=== PATIENT | male | born 1985 | race Caucasian/White ===

== ENCOUNTER 2018-03-15 10:26 | Inpatient (IN) | payer OTHER, MEDICAID, SELFPAY ==
[2018-03-15] VITALS (10 sets, daily range): BP systolic 120–150; BP diastolic 68–99; PULSE 98–124; RESP 14–24; TEMP 36–37.6; O2SAT 96–100; BMI 21.2
--- NOTE | 2018-03-15 10:31 | DI.RAD.S_ITS ---
PROCEDURE: XR CHEST 1V INDICATIONS: chest pain TECHNIQUE: One view of the chest was acquired. COMPARISON: None. FINDINGS: Surgical changes and devices: None. Lungs and pleura: No pleural effusions or pneumothorax. Lungs are clear. Mediastinum: Mediastinal contours appear normal. Heart size is normal. Bones and chest wall: No suspicious bony lesions. Overlying soft tissues appear unremarkable. IMPRESSION: No acute pulmonary process. Dictated by: Angelita Rodríguez M.D. on 03/15/2018 at 10:06 Approved by: Angelita Rodríguez M.D. on 03/15/2018 at 10:07
[2018-03-15 10:51] LABS: Add Manual Diff / Slide Review NO; Basophils Percent Auto 0.2 % (0-2); Eosinophils Percent Auto 0.1 % (2-4); Hematocrit 45.1 % (41-53); Hemoglobin 15.4 g/dL (13.5-17.5); Lymphocytes Percent Auto 13.8 % (25-40); Mean Corpuscular HGB Conc 34.2 % (30-36); Mean Corpuscular Volume 87.7 fL (80-100); Monocytes Percent Auto 2.5 % (3-14); Neutrophils Absolute Auto 10700 /uL (3000-5900); Neutrophils Percent Auto 83.4 % (50-75); Platelet Count 318 X10^3/uL (150-400); Red Blood Cell Count 5.14 X10^6/uL (4.5-5.9); Red Cell Distribution Width 13.4 % (11.6-14.8); White Blood Cell Count 12.8 X10^3/uL (4.5-11.0)
[2018-03-15 10:56] LABS: pH VBG 7.16 (7.31-7.41)
[2018-03-15 10:56] LABS: HEMOLYSIS 120 (0-50)
--- NOTE | 2018-03-15 10:56 | PC.NURSE ---
pt arrived via airlift due to hyperglycemia. pt awake, somulant at times does answer questions. emesis/ dark red iv x l ac by medic/ another iv placed when here. 1000cc ns infused, 2nd line up md at bedside/ rx given.
[2018-03-15 11:00] LABS: Lactate (Lactic Acid) 1.4 mmol/L (0.7-2.1)
[2018-03-15 11:02] LABS: Alanine Aminotransferase 41 IU/L (21-72); Albumin 4.8 g/dL (3.5-5.0); Albumin Globulin Ratio 1.6 (1.0-2.8); Alkaline Phosphatase 87 U/L (38-126); Aspartate Aminotransferase 40 IU/L (17-59); BUN Creatinine Ratio 22.9 (6-22); Bilirubin Total 0.9 mg/dL (0.2-1.3); Blood Urea Nitrogen 16 mg/dL (9-20); Calcium 9.2 mg/dL (8.4-10.2); Chloride 100 mmol/L (98-107); Creatine Kinase 92 U/L (55-170); Estimated Glomerular Filt Rate > 60.0 mL/min (>60); Glucose 482 mg/dL (70-100); Potassium 5.5 mmol/L (3.4-5.1); Sodium 135 mmol/L (137-145); Total Protein 7.8 g/dL (6.3-8.2)
[2018-03-15] MEDS: PANTOPRAZOLE 40 MG VIAL IV (11:06)
[2018-03-15] MEDS: ONDANSETRON 4 MG/2 ML INJ IV ×2 (11:06→19:41)
[2018-03-15] MEDS: SODIUM CHLORIDE 0.9% 1,000 ML 1000 ML IV (11:06)
[2018-03-15] MEDS: INSULIN REGULAR, HUMAN 100 UNIT in SODIUM CHLORIDE 0.9% 100 ML 6 ML IV (11:09)
--- NOTE | 2018-03-15 11:11 | ED.GENADULT ---
HPI - General Adult General Chief complaint: Diabetic Problem Stated complaint: DKA, GI Bleed Time Seen by Provider: 03/15/18 10:31 Source: patient and EMS Mode of arrival: other (airlift) History of Present Illness HPI narrative: Patient is a 32-year-old male who presents with of vomiting and elevated glucose. He is a type 1 diabetic. Visiting from [place]. He has vomited coffee-ground like substance he has a bag full of it. He often has gastritis and upper GI bleeding with his DKA. He he has been taking his insulin except he has not been taking it for the last 2-3 days. No fever or chills. He is having abdominal discomfort. He has progressively gotten worse on this morning he was Related Data Home Medications Medication Instructions Recorded Confirmed Lantus U-100 Insulin 10 units SUB-Q BEDTIME 03/15/18 03/15/18 insulin glargine [Lantus U-100 20 unit SUB-Q DAILY 03/15/18 03/15/18 Insulin] insulin lispro [Humalog U-100 0 units SUB-Q ACHS 03/15/18 03/15/18 Insulin] Allergies Allergy/AdvReac Type Severity Reaction Status Date / Time azithromycin Allergy Intermediate Verified 03/15/18 11:06 codeine Allergy Intermediate Verified 03/15/18 11:06 Review of Systems Review of Systems All systems reviewed & are unremarkable except as noted in HPI and below Constitutional Denies chills, Denies fever(s), Denies lethargy and Denies weakness ENT Ears, Nose, Mouth, and Throat: Denies dizziness Cardiovascular Denies chest pain, Denies syncope, Denies irregular heart rhythm, Denies lightheadedness, Denies palpitations, Denies dyspnea, Denies dyspnea on exertion and Denies orthopnea Respiratory Denies cough, Denies dyspnea, Denies dyspnea on exertion and Denies wheezing Gastrointestinal Gastrointestinal: Reports as per HPI, Denies diarrhea, Reports nausea and Reports vomiting Neurologic Denies dizziness, Denies syncope and Denies weakness Endocrine Reports system reviewed and no additional complaints, except as docu and Denies palpitations Allergic/Immunologic Denies wheezing PFSH Medical History Diabetes mellitus (Acute) GI bleed (Acute) Myocardial infarct (Acute) Family History: Reviewed 03/15/18 by Chaparro Waite MD Social History household members: none Smoking Status: Current every day smoker alcohol intake: current Exam Initial Vital Signs Initial Vital Signs: Vital Signs Temperature 97.2 F L 03/15/18 10:48 Pulse Rate 120 H 03/15/18 10:48 Respiratory Rate 21 03/15/18 10:48 Blood Pressure 150/99 H 03/15/18 10:48 Pulse Oximetry 98 03/15/18 10:48 Const General: acute distress (Actively vomiting), diaphoretic, ill appearing and lethargic HENMO Head: normal to inspection Mouth: No moist mucous membranes and mucous membranes abnormal (Dry) Resp Effort & Inspection: normal respiratory effort and able to speak in complete sentences Auscultation: clear to auscultation bilaterally Cardio Rate: tachycardic Rhythm: regular rhythm GI Inspection: non-distended Palpation: soft, no hepatosplenomegaly, No guarding, No pulsatile mass and No tender Auscultation: normal bowel sounds Skin General: no rashes or lesions noted, No jaundice and No petechiae Neuro General: alert and awake Cranial Nerves: CN's II-XI intact bilaterally Course Orders Ordered: ED Orders 03/15/18 10:30 Complete Blood Count AUTO DIFF Stat Comprehensive Metabolic Panel Stat Ketones (Beta-Hydroxybutyrate) Stat Lactate (Lactic Acid) Stat Troponin with CK Cardiac Panel Stat Type and Screen Stat 03/15/18 10:31 XR chest 1V Stat 03/15/18 10:32 pH VBG Stat 03/15/18 10:33 EKG-12 Lead Stat 03/15/18 13:28 Consult to Dietitian, Adult Routine Consult to Respiratory Therapy Evaluate & Treat 03/15/18 13:34 Basic Metabolic Panel Q4H 03/15/18 14:45 MRSA PCR Stat Rapid Drug Screen, Urine Stat Urinalysis Sreen (Dip Only) Stat Urine Culture Stat 03/15/18 16:45 Basic Metabolic Panel Q4H 03/15/18 20:45 Basic Metabolic Panel Q4H 03/16/18 01:00 BMP [Basic Metabolic Panel] Q4H 03/16/18 05:00 BMP [Basic Metabolic Panel] Q4H Complete Blood Count AUTO DIFF Routine 03/16/18 08:00 Ketones (Beta-Hydroxybutyrate) Routine 03/16/18 09:00 BMP [Basic Metabolic Panel] Q4H Dextrose (D50w) 25 gm IV PRN PRN PRN Reason: Hypoglycemia Enoxaparin Sodium (Lovenox) 40 mg SUBCUT DAILY DAPHNIE Insulin Human Regular 100 unit (/ Sodium Chloride) 100 mls @ 6 mls/hr IV TITRATE DAPHNIE; Protocol Dextrose/Sodium Chloride (Dextrose 5%-0.45% Ns) 1,000 mls @ 200 mls/hr IV CONT DAPHNIE Last Admin: 03/15/18 13:30 Dose: 200 mls/hr Sodium Chloride (Normal Saline 0.9%) 250 mls @ 21 mls/hr IV Q24H PRN PRN Reason: Flush Lorazepam (Ativan) 1 mg IV Q4HR PRN PRN Reason: nausea/vomiting Last Admin: 03/15/18 14:55 Dose: 1 mg Metoclopramide HCl (Reglan) 10 mg IV Q6HR PRN PRN Reason: Nausea And Vomiting Ondansetron HCl (Zofran) 4 mg IV Q4HR PRN PRN Reason: Nausea And Vomiting Pantoprazole Sodium (Protonix) 40 mg IV DAILY DAPHNIE Discontinued Medications Sodium Chloride (Normal Saline 0.9%) 1,000 mls @ 1,000 mls/hr IV BOLUS ONE Stop: 03/15/18 11:30 Last Infusion: 03/15/18 11:59 Dose: 999 mls/hr Admin: 03/15/18 11:06 Dose: 1,000 mls/hr Insulin Human Regular 100 unit (/ Sodium Chloride) 100 mls @ 6 mls/hr IV TITRATE DAPHNIE; Protocol Last Titration: 03/15/18 14:12 Dose: 7 unit/hr, 7 mls/hr Titration: 03/15/18 13:57 Dose: 11 unit/hr, 11 mls/hr Titration: 03/15/18 13:21 Dose: 4 unit/hr, 4 mls/hr Titration: 03/15/18 11:36 Dose: 4 unit/hr, 4 mls/hr Admin: 03/15/18 11:09 Dose: 6 unit/hr, 6 mls/hr Sodium Chloride (Normal Saline 0.9%) 1,000 mls @ 1,000 mls/hr IV BOLUS ONE Stop: 03/15/18 12:22 Last Admin: 03/15/18 11:47 Dose: Dextrose (Dextrose 5% Water) 1,000 mls @ 200 mls/hr IV CONT DAPHNIE Last Infusion: 03/15/18 13:25 Dose: 0 mls/hr Infusion: 03/15/18 13:23 Dose: 200 mls/hr Admin: 03/15/18 11:45 Dose: 200 mls/hr Potassium Chloride 20 meq/ (Sodium Chloride) 500 mls @ 250 mls/hr IV NOW ONE Stop: 03/15/18 14:18 Last Admin: 03/15/18 14:56 Dose: Potassium Chloride 20 meq/ (Sodium Chloride) 500 mls @ 250 mls/hr IV NOW ONE Stop: 03/15/18 16:29 Last Admin: 03/15/18 14:55 Dose: 250 mls/hr Metoclopramide HCl (Reglan) 10 mg IV NOW ONE Stop: 03/15/18 11:24 Last Admin: 03/15/18 11:24 Dose: 10 mg Ondansetron HCl (Zofran) 4 mg IV NOW ONE Stop: 03/15/18 10:35 Last Admin: 03/15/18 11:06 Dose: 4 mg Pantoprazole Sodium (Protonix) 40 mg IV NOW ONE Stop: 03/15/18 10:32 Last Admin: 03/15/18 11:06 Dose: 40 mg Vital Signs - 8 hr 03/15/18 10:48 03/15/18 10:55 03/15/18 11:09 Temperature 97.2 F L 97.2 F L 97.2 F L Pulse Rate 120 H 120 H 120 H Respiratory Rate 21 21 21 Blood Pressure 150/99 H 150/99 H 150/99 H Blood Pressure [Left Arm] Pulse Oximetry 98 98 98 03/15/18 11:32 03/15/18 12:55 03/15/18 13:03 Temperature 97.8 F Pulse Rate 124 H 122 H 121 H Respiratory Rate 14 24 24 Blood Pressure 148/86 H Blood Pressure [Left Arm] 139/81 H 146/84 H Pulse Oximetry 100 100 96 03/15/18 15:00 Temperature 96.8 F L Pulse Rate 121 H Respiratory Rate 16 Blood Pressure 133/86 H Blood Pressure [Left Arm] Pulse Oximetry Medical Decision Making MDM Narrative Medical decision making narrative: Patient is in DKA. Glucose is dropping rather quickly with just IV fluids. Insulin drip was started fairly quickly as well. Decreasing insulin drip switching over to D5. Dr. Waite in the ED happily accepts patient patient will be going to the ICU. Lab Data Lab results narrative: Anion gap 28 Result diagrams: 03/15/18 10:30 03/15/18 13:34 Lab Results 03/15/18 03/15/18 03/15/18 Range/Units 10:30 10:30 10:30 WBC 12.8 H (4.5-11.0) X10^3/uL RBC 5.14 (4.5-5.9) X10^6/uL Hgb 15.4 (13.5-17.5) g/dL Hct 45.1 (41-53) % MCV 87.7 (80-100) fL MCH 30.0 (26-34) PG MCHC 34.2 (30-36) % RDW 13.4 (11.6-14.8) % Plt Count 318 (150-400) X10^3/uL Neut % (Auto) 83.4 H (50-75) % Lymph % (Auto) 13.8 L (25-40) % [place] % (Auto) 2.5 L (3-14) % Eos % (Auto) 0.1 L (2-4) % Baso % (Auto) 0.2 (0-2) % Neut # (Auto) 64970 H (7288-8012) /uL VBG pH (7.31-7.41) Sodium 135 L (137-145) mmol/L Potassium 5.5 H (3.4-5.1) mmol/L Chloride 100 (98-107) mmol/L Carbon Dioxide 7 L* (22-32) mmol/L BUN 16 (9-20) mg/dL Creatinine 0.70 (0.66-1.25) mg/dL Estimated GFR > 60.0 (>60) mL/min BUN/Creatinine Ratio 22.9 H (6-22) Glucose 482 H (70-100) mg/dL Lactate 1.4 (0.7-2.1) mmol/L Calcium 9.2 (8.4-10.2) mg/dL Total Bilirubin 0.9 (0.2-1.3) mg/dL AST 40 (17-59) IU/L ALT 41 (21-72) IU/L Alkaline Phosphatase 87 (38-126) U/L Total Creatine Kinase 92 (55-170) U/L Troponin I < 0.012 (0.01-0.034) ng/mL Total Protein 7.8 (6.3-8.2) g/dL Albumin 4.8 (3.5-5.0) g/dL Globulin 3.0 (1.7-4.1) g/dL Albumin/Globulin Ratio 1.6 (1.0-2.8) Urine Color Urine Appearance Urine pH (4.5-8.0) Ur Specific [place] (1.000-1.035) Urine Protein (Negative) Urine Glucose (UA) (Negative) g/dL Urine Ketones (NEGATIVE) Urine Occult Blood (Negative) Urine Nitrate (Negative) Urine Bilirubin (NEGATIVE) Urine Urobilinogen (0.2) E.U./dL Ur Leukocyte Esterase (NEGATIVE) Nasal Screen MRSA (PCR) (Negative) Urine Opiates Screen (Negative) Ur Oxycodone Screen (Negative) Urine Methadone Screen (Negative) Ur Barbiturates Screen (Negative) U Tricyclic Antidepress (Negative) Ur Phencyclidine Scrn (Negative) Ur Amphetamines Screen (Negative) U Methamphetamines Scrn (Negative) Ur MDMA Scrn (Ecstasy) (Negative) U Benzodiazepines Scrn (Negative) Urine Cocaine Screen (Negative) U Marijuana (THC) Screen (Negative) Ketones 9.94 H (<0.27) mmol/L Blood Type Antibody Screen 03/15/18 03/15/18 03/15/18 Range/Units 10:30 10:32 13:34 WBC (4.5-11.0) X10^3/uL RBC (4.5-5.9) X10^6/uL Hgb (13.5-17.5) g/dL Hct (41-53) % MCV (80-100) fL MCH (26-34) PG MCHC (30-36) % RDW (11.6-14.8) % Plt Count (150-400) X10^3/uL Neut % (Auto) (50-75) % Lymph % (Auto) (25-40) % [place] % (Auto) (3-14) % Eos % (Auto) (2-4) % Baso % (Auto) (0-2) % Neut # (Auto) (5881-5653) /uL VBG pH 7.16 L* (7.31-7.41) Sodium 141 (137-145) mmol/L Potassium 4.4 (3.4-5.1) mmol/L Chloride 108 H (98-107) mmol/L Carbon Dioxide 8 L* (22-32) mmol/L BUN 15 (9-20) mg/dL Creatinine 0.60 L (0.66-1.25) mg/dL Estimated GFR > 60.0 (>60) mL/min BUN/Creatinine Ratio 25.0 H (6-22) Glucose 323 H D (70-100) mg/dL Lactate (0.7-2.1) mmol/L Calcium 8.7 (8.4-10.2) mg/dL Total Bilirubin (0.2-1.3) mg/dL AST (17-59) IU/L ALT (21-72) IU/L Alkaline Phosphatase (38-126) U/L Total Creatine Kinase (55-170) U/L Troponin I (0.01-0.034) ng/mL Total Protein (6.3-8.2) g/dL Albumin (3.5-5.0) g/dL Globulin (1.7-4.1) g/dL Albumin/Globulin Ratio (1.0-2.8) Urine Color Urine Appearance Urine pH (4.5-8.0) Ur Specific [place] (1.000-1.035) Urine Protein (Negative) Urine Glucose (UA) (Negative) g/dL Urine Ketones (NEGATIVE) Urine Occult Blood (Negative) Urine Nitrate (Negative) Urine Bilirubin (NEGATIVE) Urine Urobilinogen (0.2) E.U./dL Ur Leukocyte Esterase (NEGATIVE) Nasal Screen MRSA (PCR) (Negative) Urine Opiates Screen (Negative) Ur Oxycodone Screen (Negative) Urine Methadone Screen (Negative) Ur Barbiturates Screen (Negative) U Tricyclic Antidepress (Negative) Ur Phencyclidine Scrn (Negative) Ur Amphetamines Screen (Negative) U Methamphetamines Scrn (Negative) Ur MDMA Scrn (Ecstasy) (Negative) U Benzodiazepines Scrn (Negative) Urine Cocaine Screen (Negative) U Marijuana (THC) Screen (Negative) Ketones (<0.27) mmol/L Blood Type O Positive Antibody Screen Negative 03/15/18 03/15/18 03/15/18 Range/Units 14:45 14:45 14:45 WBC (4.5-11.0) X10^3/uL RBC (4.5-5.9) X10^6/uL Hgb (13.5-17.5) g/dL Hct (41-53) % MCV (80-100) fL MCH (26-34) PG MCHC (30-36) % RDW (11.6-14.8) % Plt Count (150-400) X10^3/uL Neut % (Auto) (50-75) % Lymph % (Auto) (25-40) % [place] % (Auto) (3-14) % Eos % (Auto) (2-4) % Baso % (Auto) (0-2) % Neut # (Auto) (8767-2460) /uL VBG pH (7.31-7.41) Sodium (137-145) mmol/L Potassium (3.4-5.1) mmol/L Chloride (98-107) mmol/L Carbon Dioxide (22-32) mmol/L BUN (9-20) mg/dL Creatinine (0.66-1.25) mg/dL Estimated GFR (>60) mL/min BUN/Creatinine Ratio (6-22) Glucose (70-100) mg/dL Lactate (0.7-2.1) mmol/L Calcium (8.4-10.2) mg/dL Total Bilirubin (0.2-1.3) mg/dL AST (17-59) IU/L ALT (21-72) IU/L Alkaline Phosphatase (38-126) U/L Total Creatine Kinase (55-170) U/L Troponin I (0.01-0.034) ng/mL Total Protein (6.3-8.2) g/dL Albumin (3.5-5.0) g/dL Globulin (1.7-4.1) g/dL Albumin/Globulin Ratio (1.0-2.8) Urine Color Yellow Urine Appearance Clear Urine pH 5.0 (4.5-8.0) Ur Specific [place] 1.025 (1.000-1.035) Urine Protein Trace H (Negative) Urine Glucose (UA) 1+ H (Negative) g/dL Urine Ketones 3+ H (NEGATIVE) Urine Occult Blood Trace-lysed (Negative) Urine Nitrate Negative (Negative) Urine Bilirubin Negative (NEGATIVE) Urine Urobilinogen 0.2 (0.2) E.U./dL Ur Leukocyte Esterase Negative (NEGATIVE) Nasal Screen MRSA (PCR) Positive for mrsa (Negative) Urine Opiates Screen Negative (Negative) Ur Oxycodone Screen Negative (Negative) Urine Methadone Screen Negative (Negative) Ur Barbiturates Screen Negative (Negative) U Tricyclic Antidepress Negative (Negative) Ur Phencyclidine Scrn Negative (Negative) Ur Amphetamines Screen Negative (Negative) U Methamphetamines Scrn Negative (Negative) Ur MDMA Scrn (Ecstasy) Negative (Negative) U Benzodiazepines Scrn Negative (Negative) Urine Cocaine Screen Negative (Negative) U Marijuana (THC) Screen Negative (Negative) Ketones (<0.27) mmol/L Blood Type Antibody Screen Imaging Data Chest x-ray: Attestation: I personally reviewed and interpreted this imaging study as follows: Radiologist's impression: PROCEDURE: XR CHEST 1V INDICATIONS: chest pain TECHNIQUE: One view of the chest was acquired. COMPARISON: None. FINDINGS: Surgical changes and devices: None. Lungs and pleura: No pleural effusions or pneumothorax. Lungs are clear. Mediastinum: Mediastinal contours appear normal. Heart size is normal. Bones and chest wall: No suspicious bony lesions. Overlying soft tissues appear unremarkable. IMPRESSION: No acute pulmonary process. Dictated by: Angelita Rodríguez M.D. on 03/15/2018 at 10:06 ECG Data Attestation: I personally reviewed and interpreted this ECG as follows: Prior ECG tracings: not available for review Interpretation: Sinus tachycardia rate 122 no acute ischemia no ST changes no prior to compare Discharge Plan Departure Clinical Impression: Diabetes mellitus with ketoacidosis Interventions: ED Discharge Assessment Last Done: 03/15/18 13:19 Admit Date/Time: 03/15/18 12:28 Admit Provider: Chaparro Waite
[2018-03-15 11:12] LABS: Carbon Dioxide 7 mmol/L (22-32)
[2018-03-15 11:14] LABS: Ketones (Beta-Hydroxybutyrate) 9.94 mmol/L (<0.27); Troponin I < 0.012 ng/mL (0.01-0.034)
[2018-03-15] MEDS: METOCLOPRAMIDE 10 MG/2 ML INJ IV (11:24)
[2018-03-15] MEDS: DEXTROSE 5% WATER 1,000 ML 200 ML IV (11:45)
--- NOTE | 2018-03-15 11:46 | PC.NURSE ---
PER DR. RENDON VERBAL ORDERS TO HANG 0.45 NS WITH 5% DEXTROSE 1000ML AT 200ML/HR. MEDICATION WOULD NOT SCAN. MANUALLY DOCUMENTED SENIOR APPLICATIONS ENGINEER AWARE.
[2018-03-15] MEDS: DEXTROSE 5%-0.45% NS 1,000 ML 200 ML IV ×3 (13:30→22:33)
[2018-03-15 14:05] LABS: Blood Urea Nitrogen 15 mg/dL (9-20); Calcium 8.7 mg/dL (8.4-10.2); Chloride 108 mmol/L (98-107); Estimated Glomerular Filt Rate > 60.0 mL/min (>60); Glucose 323 mg/dL (70-100); HEMOLYSIS 23 (0-50); Potassium 4.4 mmol/L (3.4-5.1); Sodium 141 mmol/L (137-145)
[2018-03-15 14:08] LABS: Carbon Dioxide 8 mmol/L (22-32)
[2018-03-15] MEDS: LORazepam 2 MG/ML SYRINGE 1 MG IV (14:55)
[2018-03-15] MEDS: POTASSIUM CHLORIDE 20 MEQ in SODIUM CHLORIDE 0.9% 500 ML 250 ML IV ×2 (14:55→19:05)
--- NOTE | 2018-03-15 15:07 | PC.ADMIT ---
Admission Note: Patient to rm 102 from ER at about 1300. Pt vomiting bloody emesis, [address] up to the 140s, currently 110s to 120s. Denies pain. Insulin gtt titrated per DKA protocol. Declines to have valuables locked in safe - wallet and clothing at bedside. Call light within reach. The patient,Jose Pantoja,32 y/o, was given written information regarding hospital policies, unit procedures and contact persons. Patient's smoking status: Current every day smoker. Vital Signs - 8 hr 03/15/18 10:48 03/15/18 10:55 03/15/18 11:09 Temperature 97.2 F L 97.2 F L 97.2 F L Pulse Rate 120 H 120 H 120 H Respiratory Rate 21 21 21 Blood Pressure 150/99 H 150/99 H 150/99 H Blood Pressure [Left Arm] Pulse Oximetry 98 98 98 03/15/18 11:32 03/15/18 12:55 03/15/18 13:03 Temperature 97.8 F Pulse Rate 124 H 122 H 121 H Respiratory Rate 14 24 24 Blood Pressure 148/86 H Blood Pressure [Left Arm] 139/81 H 146/84 H Pulse Oximetry 100 100 96
[2018-03-15 15:21] LABS: Appearance Urine UA CLEAR; Bilirubin Urine UA NEGATIVE (NEGATIVE); Color Urine UA YELLOW; Glucose Urine UA 1+ g/dL (Negative); Ketones Urine UA 3+ (NEGATIVE); Leukocyte Esterase Urine UA NEGATIVE (NEGATIVE); Nitrite Urine UA Negative (Negative); Occult Blood Urine UA TRACE-LYSED (Negative); Protein Urine UA TRACE (Negative); Specific Gravity Urine UA 1.025 (1.000-1.035); Urobilinogen Urine UA 0.2 E.U./dL (0.2)
[2018-03-15 15:23] LABS: Urine Amphetamines Negative (Negative); Urine Barbiturates Negative (Negative); Urine Benzodiazepines Negative (Negative); Urine Cocaine Negative (Negative); Urine MDMA Negative (Negative); Urine Methadone Negative (Negative); Urine Methamphetamines Negative (Negative); Urine Morphine/Opi cutoff 2000 Negative (Negative); Urine Oxycodone Negative (Negative); Urine Phencyclidine Negative (Negative); Urine Tetrahydrocannabinol Negative (Negative); Urine Tricyclic Antidepressant Negative (Negative)
--- NOTE | 2018-03-15 15:44 | PM.HP.1 ---
History of Present Illness Chief complaint: Diabetes mellitus with ketoacidosis Narrative: Jose Pantoja is a 32 year old male without a local PCP who has history of type 1 diabetes, prior DKA, coronary disease who presented to emergency department with nausea, vomiting and weakness since this morning. He has been getting his medical care in [place] but was visiting friends on [place] where he used to reside. He states he has not used his insulin for the past 2 days for unclear reasons. He has had DKA admission to outside hospital in the past year. He denies recent illness such is symptoms of fever, cough or any chest pain. He did have some hematemesis with his vomiting. ER evaluation indicated venous pH 7.1, anion gap acidosis, glucose over 500 on fingerstick, elevated serum ketones consistent with DKA. In regards to history of coronary artery disease, he had 2 stents placed in LAD back in 2010. At this time he is not taking any anti-platelet agent, cholesterol-lowering drug or other cardiac medications. Patient History Medical History Diabetes mellitus (Acute) GI bleed (Acute) Myocardial infarct (Acute) Family & Social History Family History: Reviewed 03/15/18 by Chaparro Waite MD Social History: household members none Prior Living Arrangements House Safety & Behavioral: Feels Safe in Current Yes Environment Been Physically Hurt or No Threatened By a Person Suicidal Ideation Description None Suicide Plan Description No Plan Tobacco & Substance use: Tobacco type cigarettes Smoking Status Current every day smoker alcohol intake current alcohol intake frequency a few times a week Substance Use Type marijuana Meds Home Medications Medication Instructions Recorded Confirmed Type Lantus U-100 Insulin 10 units SUB-Q BEDTIME 03/15/18 03/15/18 History insulin glargine [Lantus U-100 30 unit SUB-Q DAILY 03/15/18 03/15/18 History Insulin] insulin lispro [Humalog U-100 0 units SUB-Q ACHS 03/15/18 03/15/18 History Insulin] Allergies Allergy/AdvReac Type Severity Reaction Status Date / Time azithromycin Allergy Intermediate Verified 03/15/18 11:06 codeine Allergy Intermediate Verified 03/15/18 11:06 Review of Systems Review of Systems All systems reviewed & are unremarkable except as noted in HPI and below Exam Vital Signs (past 8 hours): Vital Signs - 8 hr 03/15/18 10:48 03/15/18 10:55 03/15/18 11:09 Temperature 97.2 F L 97.2 F L 97.2 F L Pulse Rate 120 H 120 H 120 H Respiratory Rate 21 21 21 Blood Pressure 150/99 H 150/99 H 150/99 H Blood Pressure [Left Arm] Pulse Oximetry 98 98 98 03/15/18 11:32 03/15/18 12:55 03/15/18 13:03 Temperature 97.8 F Pulse Rate 124 H 122 H 121 H Respiratory Rate 14 24 24 Blood Pressure 148/86 H Blood Pressure [Left Arm] 139/81 H 146/84 H Pulse Oximetry 100 100 96 03/15/18 15:00 Temperature 96.8 F L Pulse Rate 121 H Respiratory Rate 16 Blood Pressure 133/86 H Blood Pressure [Left Arm] Pulse Oximetry Pulse Oximetry 96 Oxygen Delivery Method Room Air Oxygen Flow Rate 0 Narrative Exam Narrative: GENERAL: This is an ill appearing lethargic male HEAD: Atraumatic. Normocephalic. EYES: Pupils equal, round and reactive, extraocular muscles intact Mouth: Dry mucosa NECK: Trachea midline. No JVD or lymphadenopathy. CARDIOVASCULAR: Tachycardic with regular rhythm RESPIRATORY: Clear to auscultation bilaterally. GASTROINTESTINAL: Abdomen nondistended, soft, non-tender. No hepato-splenomegaly, or palpable masses. EXTREMITIES: No edema. NEUROLOGICAL: Lethargic, nonfocal SKIN: warm, dry, no rash Objective Labs Result Diagrams: 03/15/18 10:30 03/15/18 13:34 Labs: Laboratory Results - last 24 hr 03/15/18 03/15/18 03/15/18 10:30 10:30 10:30 WBC 12.8 H RBC 5.14 Hgb 15.4 Hct 45.1 MCV 87.7 MCH 30.0 MCHC 34.2 RDW 13.4 Plt Count 318 Neut % (Auto) 83.4 H Lymph % (Auto) 13.8 L [place] % (Auto) 2.5 L Eos % (Auto) 0.1 L Baso % (Auto) 0.2 Neut # (Auto) 05390 H VBG pH Sodium 135 L Potassium 5.5 H Chloride 100 Carbon Dioxide 7 L* BUN 16 Creatinine 0.70 Estimated GFR > 60.0 BUN/Creatinine Ratio 22.9 H Glucose 482 H Lactate 1.4 Calcium 9.2 Total Bilirubin 0.9 AST 40 ALT 41 Alkaline Phosphatase 87 Total Creatine Kinase 92 Troponin I < 0.012 Total Protein 7.8 Albumin 4.8 Globulin 3.0 Albumin/Globulin Ratio 1.6 Urine Color Urine Appearance Urine pH Ur Specific [place] Urine Protein Urine Glucose (UA) Urine Ketones Urine Occult Blood Urine Nitrate Urine Bilirubin Urine Urobilinogen Ur Leukocyte Esterase Urine Opiates Screen Ur Oxycodone Screen Urine Methadone Screen Ur Barbiturates Screen U Tricyclic Antidepress Ur Phencyclidine Scrn Ur Amphetamines Screen U Methamphetamines Scrn Ur MDMA Scrn (Ecstasy) U Benzodiazepines Scrn Urine Cocaine Screen U Marijuana (THC) Screen Ketones 9.94 H Blood Type Antibody Screen 03/15/18 03/15/18 03/15/18 10:30 10:32 13:34 WBC RBC Hgb Hct MCV MCH MCHC RDW Plt Count Neut % (Auto) Lymph % (Auto) [place] % (Auto) Eos % (Auto) Baso % (Auto) Neut # (Auto) VBG pH 7.16 L* Sodium 141 Potassium 4.4 Chloride 108 H Carbon Dioxide 8 L* BUN 15 Creatinine 0.60 L Estimated GFR > 60.0 BUN/Creatinine Ratio 25.0 H Glucose 323 H D Lactate Calcium 8.7 Total Bilirubin AST ALT Alkaline Phosphatase Total Creatine Kinase Troponin I Total Protein Albumin Globulin Albumin/Globulin Ratio Urine Color Urine Appearance Urine pH Ur Specific [place] Urine Protein Urine Glucose (UA) Urine Ketones Urine Occult Blood Urine Nitrate Urine Bilirubin Urine Urobilinogen Ur Leukocyte Esterase Urine Opiates Screen Ur Oxycodone Screen Urine Methadone Screen Ur Barbiturates Screen U Tricyclic Antidepress Ur Phencyclidine Scrn Ur Amphetamines Screen U Methamphetamines Scrn Ur MDMA Scrn (Ecstasy) U Benzodiazepines Scrn Urine Cocaine Screen U Marijuana (THC) Screen Ketones Blood Type O Positive Antibody Screen Negative 03/15/18 03/15/18 14:45 14:45 WBC RBC Hgb Hct MCV MCH MCHC RDW Plt Count Neut % (Auto) Lymph % (Auto) [place] % (Auto) Eos % (Auto) Baso % (Auto) Neut # (Auto) VBG pH Sodium Potassium Chloride Carbon Dioxide BUN Creatinine Estimated GFR BUN/Creatinine Ratio Glucose Lactate Calcium Total Bilirubin AST ALT Alkaline Phosphatase Total Creatine Kinase Troponin I Total Protein Albumin Globulin Albumin/Globulin Ratio Urine Color Yellow Urine Appearance Clear Urine pH 5.0 Ur Specific [place] 1.025 Urine Protein Trace H Urine Glucose (UA) 1+ H Urine Ketones 3+ H Urine Occult Blood Trace-lysed Urine Nitrate Negative Urine Bilirubin Negative Urine Urobilinogen 0.2 Ur Leukocyte Esterase Negative Urine Opiates Screen Negative Ur Oxycodone Screen Negative Urine Methadone Screen Negative Ur Barbiturates Screen Negative U Tricyclic Antidepress Negative Ur Phencyclidine Scrn Negative Ur Amphetamines Screen Negative U Methamphetamines Scrn Negative Ur MDMA Scrn (Ecstasy) Negative U Benzodiazepines Scrn Negative Urine Cocaine Screen Negative U Marijuana (THC) Screen Negative Ketones Blood Type Antibody Screen Chest x-ray: Normal Assessment & Plan Plan: Plan: 1. Acute DKA secondary to insulin noncompliance: Patient admitted to ICU. He received initial IV hydration and started on insulin drip per our DKA protocol. Will follow DKA protocol. He is NPO. Monitor electrolytes every 4 hr per protocol. Transition to oral diet with subcu insulin once his acidosis has resolved and ketones cleared. 2. Coronary artery disease: He is not on any anti-platelet drugs or statin. Still smoking. He is not having any acute cardiac issues. 3. Hematemesis secondary to vomiting: Provided IV Protonix. Repeat CBC in a.m.. Quality VTE Deep Vein Thrombosis/Pulmonary Embolism Present on Admission: No
--- NOTE | 2018-03-15 16:01 | P.HP_ITS ---
History of Present Illness Chief complaint: Diabetes mellitus with ketoacidosis Narrative: Jose Pantoja is a 32 year old male without a local PCP who has history of type 1 diabetes, prior DKA, coronary disease who presented to emergency department with nausea, vomiting and weakness since this morning. He has been getting his medical care in [place] but was visiting friends on [place] where he used to reside. He states he has not used his insulin for the past 2 days for unclear reasons. He has had DKA admission to outside hospital in the past year. He denies recent illness such is symptoms of fever, cough or any chest pain. He did have some hematemesis with his vomiting. ER evaluation indicated venous pH 7.1, anion gap acidosis, glucose over 500 on fingerstick, elevated serum ketones consistent with DKA. In regards to history of coronary artery disease, he had 2 stents placed in LAD back in 2010. At this time he is not taking any anti-platelet agent, cholesterol-lowering drug or other cardiac medications. Patient History Medical History Diabetes mellitus (Acute) GI bleed (Acute) Myocardial infarct (Acute) Family & Social History Family History: Reviewed 03/15/18 by Chaparro Waite MD Social History: household members none Prior Living Arrangements House Safety & Behavioral: Feels Safe in Current Yes Environment Been Physically Hurt or No Threatened By a Person Suicidal Ideation Description None Suicide Plan Description No Plan Tobacco & Substance use: Tobacco type cigarettes Smoking Status Current every day smoker alcohol intake current alcohol intake frequency a few times a week Substance Use Type marijuana Meds Home Medications Medication Instructions Recorded Confirmed Type Lantus U-100 Insulin 10 units SUB-Q BEDTIME 03/15/18 03/15/18 History insulin glargine [Lantus U-100 30 unit SUB-Q DAILY 03/15/18 03/15/18 History Insulin] insulin lispro [Humalog U-100 0 units SUB-Q ACHS 03/15/18 03/15/18 History Insulin] Allergies Allergy/AdvReac Type Severity Reaction Status Date / Time azithromycin Allergy Intermediate Verified 03/15/18 11:06 codeine Allergy Intermediate Verified 03/15/18 11:06 Review of Systems Review of Systems All systems reviewed & are unremarkable except as noted in HPI and below Exam Vital Signs (past 8 hours): Vital Signs - 8 hr 3 03/15/18 10:48 03/15/18 10:55 03/15/18 11:09 Temperature 97.2 F L 97.2 F L 97.2 F L Pulse Rate 120 H 120 H 120 H Respiratory Rate 21 21 21 Blood Pressure 150/99 H 150/99 H 150/99 H Blood Pressure [Left Arm] Pulse Oximetry 98 98 98 3 03/15/18 11:32 03/15/18 12:55 03/15/18 13:03 Temperature 97.8 F Pulse Rate 124 H 122 H 121 H Respiratory Rate 14 24 24 Blood Pressure 148/86 H Blood Pressure [Left Arm] 139/81 H 146/84 H Pulse Oximetry 100 100 96 3 03/15/18 15:00 Temperature 96.8 F L Pulse Rate 121 H Respiratory Rate 16 Blood Pressure 133/86 H Blood Pressure [Left Arm] Pulse Oximetry Pulse Oximetry 96 Oxygen Delivery Method Room Air Oxygen Flow Rate 0 Narrative Exam Narrative: GENERAL: This is an ill appearing lethargic male HEAD: Atraumatic. Normocephalic. EYES: Pupils equal, round and reactive, extraocular muscles intact Mouth: Dry mucosa NECK: Trachea midline. No JVD or lymphadenopathy. CARDIOVASCULAR: Tachycardic with regular rhythm RESPIRATORY: Clear to auscultation bilaterally. GASTROINTESTINAL: Abdomen nondistended, soft, non-tender. No hepato- splenomegaly, or palpable masses. EXTREMITIES: No edema. NEUROLOGICAL: Lethargic, nonfocal SKIN: warm, dry, no rash Objective Labs Result Diagrams: 03/15/18 10:30 03/15/18 13:34 Labs: Laboratory Results - last 24 hr 03/15/18 03/15/18 03/15/18 10:30 10:30 10:30 WBC 12.8 H RBC 5.14 Hgb 15.4 Hct 45.1 MCV 87.7 MCH 30.0 MCHC 34.2 RDW 13.4 Plt Count 318 Neut % (Auto) 83.4 H Lymph % (Auto) 13.8 L [place] % (Auto) 2.5 L Eos % (Auto) 0.1 L Baso % (Auto) 0.2 Neut # (Auto) 53315 H VBG pH Sodium 135 L Potassium 5.5 H Chloride 100 Carbon Dioxide 7 L* BUN 16 Creatinine 0.70 Estimated GFR > 60.0 BUN/Creatinine Ratio 22.9 H Glucose 482 H Lactate 1.4 Calcium 9.2 Total Bilirubin 0.9 AST 40 ALT 41 Alkaline Phosphatase 87 Total Creatine Kinase 92 Troponin I < 0.012 Total Protein 7.8 Albumin 4.8 Globulin 3.0 Albumin/Globulin Ratio 1.6 Urine Color Urine Appearance Urine pH Ur Specific [place] Urine Protein Urine Glucose (UA) Urine Ketones Urine Occult Blood Urine Nitrate Urine Bilirubin Urine Urobilinogen Ur Leukocyte Esterase Urine Opiates Screen Ur Oxycodone Screen Urine Methadone Screen Ur Barbiturates Screen U Tricyclic Antidepress Ur Phencyclidine Scrn Ur Amphetamines Screen U Methamphetamines Scrn Ur MDMA Scrn (Ecstasy) U Benzodiazepines Scrn Urine Cocaine Screen U Marijuana (THC) Screen Ketones 9.94 H Blood Type Antibody Screen 03/15/18 03/15/18 03/15/18 10:30 10:32 13:34 WBC RBC Hgb Hct MCV MCH MCHC RDW Plt Count Neut % (Auto) Lymph % (Auto) [place] % (Auto) Eos % (Auto) Baso % (Auto) Neut # (Auto) VBG pH 7.16 L* Sodium 141 Potassium 4.4 Chloride 108 H Carbon Dioxide 8 L* BUN 15 Creatinine 0.60 L Estimated GFR > 60.0 BUN/Creatinine Ratio 25.0 H Glucose 323 H D Lactate Calcium 8.7 Total Bilirubin AST ALT Alkaline Phosphatase Total Creatine Kinase Troponin I Total Protein Albumin Globulin Albumin/Globulin Ratio Urine Color Urine Appearance Urine pH Ur Specific [place] Urine Protein Urine Glucose (UA) Urine Ketones Urine Occult Blood Urine Nitrate Urine Bilirubin Urine Urobilinogen Ur Leukocyte Esterase Urine Opiates Screen Ur Oxycodone Screen Urine Methadone Screen Ur Barbiturates Screen U Tricyclic Antidepress Ur Phencyclidine Scrn Ur Amphetamines Screen U Methamphetamines Scrn Ur MDMA Scrn (Ecstasy) U Benzodiazepines Scrn Urine Cocaine Screen U Marijuana (THC) Screen Ketones Blood Type O Positive Antibody Screen Negative 03/15/18 03/15/18 14:45 14:45 WBC RBC Hgb Hct MCV MCH MCHC RDW Plt Count Neut % (Auto) Lymph % (Auto) [place] % (Auto) Eos % (Auto) Baso % (Auto) Neut # (Auto) VBG pH Sodium Potassium Chloride Carbon Dioxide BUN Creatinine Estimated GFR BUN/Creatinine Ratio Glucose Lactate Calcium Total Bilirubin AST ALT Alkaline Phosphatase Total Creatine Kinase Troponin I Total Protein Albumin Globulin Albumin/Globulin Ratio Urine Color Yellow Urine Appearance Clear Urine pH 5.0 Ur Specific [place] 1.025 Urine Protein Trace H Urine Glucose (UA) 1+ H Urine Ketones 3+ H Urine Occult Blood Trace-lysed Urine Nitrate Negative Urine Bilirubin Negative Urine Urobilinogen 0.2 Ur Leukocyte Esterase Negative Urine Opiates Screen Negative Ur Oxycodone Screen Negative Urine Methadone Screen Negative Ur Barbiturates Screen Negative U Tricyclic Antidepress Negative Ur Phencyclidine Scrn Negative Ur Amphetamines Screen Negative U Methamphetamines Scrn Negative Ur MDMA Scrn (Ecstasy) Negative U Benzodiazepines Scrn Negative Urine Cocaine Screen Negative U Marijuana (THC) Screen Negative Ketones Blood Type Antibody Screen Chest x-ray: Normal Assessment & Plan Plan: Plan: 1. Acute DKA secondary to insulin noncompliance: Patient admitted to ICU. He received initial IV hydration and started on insulin drip per our DKA protocol. Will follow DKA protocol. He is NPO. Monitor electrolytes every 4 hr per protocol. Transition to oral diet with subcu insulin once his acidosis has resolved and ketones cleared. 2. Coronary artery disease: He is not on any anti-platelet drugs or statin. Still smoking. He is not having any acute cardiac issues. 3. Hematemesis secondary to vomiting: Provided IV Protonix. Repeat CBC in a.m.. Quality VTE Deep Vein Thrombosis/Pulmonary Embolism Present on Admission: No
--- NOTE | 2018-03-15 16:31 | PC.NURSE ---
Addendum entered by Jannie Ferro R.N. 03/15/18 22:26: Patient woke once with nausea/emesis- medicated with zofran. See dka insulin notes- last cbg 143- pt c/o being hungry- wide awake now. reviewed plan of care-cbg results/ lab results- remain on insulin drip overnight, frequent cbg's. no nausea at this time. Original Note: Patient sleeping after medicated with ativan for nausea. cbg per dka routine- remains on insulin drip @ 7 units/hour.
[2018-03-15 17:37] LABS: BUN Creatinine Ratio 23.3 (6-22); Blood Urea Nitrogen 14 mg/dL (9-20); Calcium 8.7 mg/dL (8.4-10.2); Carbon Dioxide 16 mmol/L (22-32); Chloride 110 mmol/L (98-107); Estimated Glomerular Filt Rate > 60.0 mL/min (>60); Glucose 182 mg/dL (70-100); HEMOLYSIS < 15 (0-50); Potassium 4.5 mmol/L (3.4-5.1); Sodium 140 mmol/L (137-145)
[2018-03-15 22:12] LABS: Blood Urea Nitrogen 12 mg/dL (9-20); Calcium 8.4 mg/dL (8.4-10.2); Carbon Dioxide 19 mmol/L (22-32); Chloride 111 mmol/L (98-107); Estimated Glomerular Filt Rate > 60.0 mL/min (>60); Glucose 139 mg/dL (70-100); HEMOLYSIS < 15 (0-50); Potassium 4.1 mmol/L (3.4-5.1); Sodium 140 mmol/L (137-145)
[2018-03-16] MEDS: POTASSIUM CHLORIDE 20 MEQ in SODIUM CHLORIDE 0.9% 500 ML 250 ML IV (00:29)
[2018-03-16 02:06] VITALS: BP 123/77; PULSE 96; RESP 20
[2018-03-16] MEDS: SODIUM CHLORIDE 0.9% 250 ML 21 ML IV (03:24)
[2018-03-16] MEDS: DEXTROSE 5%-0.45% NS 1,000 ML 200 ML IV (03:30)
[2018-03-16 04:00] VITALS: BP 126/72; PULSE 90; RESP 14; TEMP 37.2; O2SAT 98
[2018-03-16 05:17] LABS: Add Manual Diff / Slide Review NO; BUN Creatinine Ratio 18.3 (6-22); Basophils Percent Auto 0.2 % (0-2); Blood Urea Nitrogen 11 mg/dL (9-20); Calcium 8.4 mg/dL (8.4-10.2); Carbon Dioxide 18 mmol/L (22-32); Chloride 111 mmol/L (98-107); Eosinophils Percent Auto 0.1 % (2-4); Estimated Glomerular Filt Rate > 60.0 mL/min (>60); Glucose 132 mg/dL (70-100); HEMOLYSIS < 15 (0-50); Hematocrit 34.5 % (41-53); Hemoglobin 12.1 g/dL (13.5-17.5); Lymphocytes Percent Auto 20.3 % (25-40); Mean Corpuscular Hemoglobin 30.1 PG (26-34); Mean Corpuscular Volume 85.9 fL (80-100); Monocytes Percent Auto 4.5 % (3-14); Neutrophils Absolute Auto 8100 /uL (3000-5900); Neutrophils Percent Auto 74.9 % (50-75); Platelet Count 250 X10^3/uL (150-400); Potassium 3.7 mmol/L (3.4-5.1); Red Blood Cell Count 4.02 X10^6/uL (4.5-5.9); Red Cell Distribution Width 13.5 % (11.6-14.8); Sodium 139 mmol/L (137-145); White Blood Cell Count 10.9 X10^3/uL (4.5-11.0)
[2018-03-16 06:00] VITALS: BP 140/82; PULSE 94; RESP 14
[2018-03-16] MEDS: POTASSIUM CHLORIDE 40 MEQ in SODIUM CHLORIDE 0.9% 500 ML 130 ML IV (06:08)
[2018-03-16 07:11] LABS: Ketones (Beta-Hydroxybutyrate) 0.99 mmol/L (<0.27)
[2018-03-16 08:57] VITALS: BP 138/84; PULSE 87; RESP 12; TEMP 37.4; O2SAT 98
[2018-03-16 09:37] LABS: BUN Creatinine Ratio 16.7 (6-22); Blood Urea Nitrogen 10 mg/dL (9-20); Calcium 8.5 mg/dL (8.4-10.2); Carbon Dioxide 20 mmol/L (22-32); Chloride 111 mmol/L (98-107); Estimated Glomerular Filt Rate > 60.0 mL/min (>60); Glucose 85 mg/dL (70-100); HEMOLYSIS < 15 (0-50); Sodium 139 mmol/L (137-145)
--- NOTE | 2018-03-16 09:42 | P.DS_ITS ---
History of Present Illness Chief complaint: Diabetes mellitus with ketoacidosis Narrative: Jose Pantoja is a 32 year old male without a local PCP who has history of type 1 diabetes, prior DKA, coronary disease who presented to emergency department with nausea, vomiting and weakness since this morning. He has been getting his medical care in [place] but was visiting friends on [place] where he used to reside. He states he has not used his insulin for the past 2 days for unclear reasons. He has had DKA admission to outside hospital in the past year. He denies recent illness such is symptoms of fever, cough or any chest pain. He did have some hematemesis with his vomiting. ER evaluation indicated venous pH 7.1, anion gap acidosis, glucose over 500 on fingerstick, elevated serum ketones consistent with DKA. In regards to history of coronary artery disease, he had 2 stents placed in LAD back in 2010. At this time he is not taking any anti-platelet agent, cholesterol-lowering drug or other cardiac medications. Discharge Providers Date of admission: 03/15/18 12:28 Consults: 03/15/18 13:28 Consult to Dietitian, Adult Routine Comment: Reason For Exam: assessed at high risk, type one DM Consult to Respiratory Therapy Evaluate & Treat Comment: Physician Instructions: Evaluate and treat Discharge provider: Chaparro Waite MD Summary Discharge Diagnosis: 1. Acute diabetic ketoacidosis due to insulin noncompliance 2. Type 1 diabetes 3. Coronary artery disease with history of stents 4. Hematemesis secondary to vomiting without significant blood loss Hospital Course: Patient was treated with DKA protocol. He did very well overnight with resolution of ketoacidosis and presenting symptoms. We are restarting him on his subcutaneous insulin home regimen and will watch patient for couple hours after he finished his breakfast to make sure he is stable prior to discharge. He will resume prior insulin regimen. He had left his insulin pens elsewhere from where he is currently staying and after provided him with new prescriptions for his insulin pens. He is also started on atorvastatin and low-dose aspirin due to his history of coronary artery disease and stent placements. Patient is agreeable with medication plan. He is instructed to establish with local primary care provider and see a provider within 2 weeks of discharge. Status at Discharge Overall status at discharge: patient is back to baseline Time Spent with Patient Greater than 30 minutes Exam Vital Signs (past 8 hours): Vital Signs - 8 hr 3 03/16/18 02:06 03/16/18 04:00 03/16/18 06:00 Temperature 98.9 F Pulse Rate 96 H 90 94 H Respiratory Rate 20 14 14 Blood Pressure 123/77 H 126/72 H 140/82 H Pulse Oximetry 98 3 03/16/18 08:57 Temperature 99.4 F Pulse Rate 87 Respiratory Rate 12 Blood Pressure 138/84 H Pulse Oximetry 98 Pulse Oximetry 98 Oxygen Delivery Method Room Air Oxygen Flow Rate 0 Objective Labs Result Diagrams: 03/16/18 04:55 03/16/18 09:00 Labs: Laboratory Results - last 24 hr 03/15/18 03/15/18 03/15/18 10:30 10:30 10:30 WBC 12.8 H RBC 5.14 Hgb 15.4 Hct 45.1 MCV 87.7 MCH 30.0 MCHC 34.2 RDW 13.4 Plt Count 318 Neut % (Auto) 83.4 H Lymph % (Auto) 13.8 L [place] % (Auto) 2.5 L Eos % (Auto) 0.1 L Baso % (Auto) 0.2 Neut # (Auto) 67374 H VBG pH Sodium 135 L Potassium 5.5 H Chloride 100 Carbon Dioxide 7 L* BUN 16 Creatinine 0.70 Estimated GFR > 60.0 BUN/Creatinine Ratio 22.9 H Glucose 482 H Lactate 1.4 Calcium 9.2 Total Bilirubin 0.9 AST 40 ALT 41 Alkaline Phosphatase 87 Total Creatine Kinase 92 Troponin I < 0.012 Total Protein 7.8 Albumin 4.8 Globulin 3.0 Albumin/Globulin Ratio 1.6 Urine Color Urine Appearance Urine pH Ur Specific [place] Urine Protein Urine Glucose (UA) Urine Ketones Urine Occult Blood Urine Nitrate Urine Bilirubin Urine Urobilinogen Ur Leukocyte Esterase Nasal Screen MRSA (PCR) Urine Opiates Screen Ur Oxycodone Screen Urine Methadone Screen Ur Barbiturates Screen U Tricyclic Antidepress Ur Phencyclidine Scrn Ur Amphetamines Screen U Methamphetamines Scrn Ur MDMA Scrn (Ecstasy) U Benzodiazepines Scrn Urine Cocaine Screen U Marijuana (THC) Screen Ketones 9.94 H Blood Type Antibody Screen 03/15/18 03/15/18 03/15/18 10:30 10:32 13:34 WBC RBC Hgb Hct MCV MCH MCHC RDW Plt Count Neut % (Auto) Lymph % (Auto) [place] % (Auto) Eos % (Auto) Baso % (Auto) Neut # (Auto) VBG pH 7.16 L* Sodium 141 Potassium 4.4 Chloride 108 H Carbon Dioxide 8 L* BUN 15 Creatinine 0.60 L Estimated GFR > 60.0 BUN/Creatinine Ratio 25.0 H Glucose 323 H D Lactate Calcium 8.7 Total Bilirubin AST ALT Alkaline Phosphatase Total Creatine Kinase Troponin I Total Protein Albumin Globulin Albumin/Globulin Ratio Urine Color Urine Appearance Urine pH Ur Specific [place] Urine Protein Urine Glucose (UA) Urine Ketones Urine Occult Blood Urine Nitrate Urine Bilirubin Urine Urobilinogen Ur Leukocyte Esterase Nasal Screen MRSA (PCR) Urine Opiates Screen Ur Oxycodone Screen Urine Methadone Screen Ur Barbiturates Screen U Tricyclic Antidepress Ur Phencyclidine Scrn Ur Amphetamines Screen U Methamphetamines Scrn Ur MDMA Scrn (Ecstasy) U Benzodiazepines Scrn Urine Cocaine Screen U Marijuana (THC) Screen Ketones Blood Type O Positive Antibody Screen Negative 03/15/18 03/15/18 03/15/18 14:45 14:45 14:45 WBC RBC Hgb Hct MCV MCH MCHC RDW Plt Count Neut % (Auto) Lymph % (Auto) [place] % (Auto) Eos % (Auto) Baso % (Auto) Neut # (Auto) VBG pH Sodium Potassium Chloride Carbon Dioxide BUN Creatinine Estimated GFR BUN/Creatinine Ratio Glucose Lactate Calcium Total Bilirubin AST ALT Alkaline Phosphatase Total Creatine Kinase Troponin I Total Protein Albumin Globulin Albumin/Globulin Ratio Urine Color Yellow Urine Appearance Clear Urine pH 5.0 Ur Specific [place] 1.025 Urine Protein Trace H Urine Glucose (UA) 1+ H Urine Ketones 3+ H Urine Occult Blood Trace-lysed Urine Nitrate Negative Urine Bilirubin Negative Urine Urobilinogen 0.2 Ur Leukocyte Esterase Negative Nasal Screen MRSA (PCR) Positive for mrsa Urine Opiates Screen Negative Ur Oxycodone Screen Negative Urine Methadone Screen Negative Ur Barbiturates Screen Negative U Tricyclic Antidepress Negative Ur Phencyclidine Scrn Negative Ur Amphetamines Screen Negative U Methamphetamines Scrn Negative Ur MDMA Scrn (Ecstasy) Negative U Benzodiazepines Scrn Negative Urine Cocaine Screen Negative U Marijuana (THC) Screen Negative Ketones Blood Type Antibody Screen 03/15/18 03/15/18 03/16/18 17:17 21:56 04:55 WBC RBC Hgb Hct MCV MCH MCHC RDW Plt Count Neut % (Auto) Lymph % (Auto) [place] % (Auto) Eos % (Auto) Baso % (Auto) Neut # (Auto) VBG pH Sodium 140 140 139 Potassium 4.5 4.1 3.7 Chloride 110 H 111 H 111 H Carbon Dioxide 16 L 19 L 18 L BUN 14 12 11 Creatinine 0.60 L 0.50 L 0.60 L Estimated GFR > 60.0 > 60.0 > 60.0 BUN/Creatinine Ratio 23.3 H 24.0 H 18.3 Glucose 182 H D 139 H 132 H Lactate Calcium 8.7 8.4 8.4 Total Bilirubin AST ALT Alkaline Phosphatase Total Creatine Kinase Troponin I Total Protein Albumin Globulin Albumin/Globulin Ratio Urine Color Urine Appearance Urine pH Ur Specific [place] Urine Protein Urine Glucose (UA) Urine Ketones Urine Occult Blood Urine Nitrate Urine Bilirubin Urine Urobilinogen Ur Leukocyte Esterase Nasal Screen MRSA (PCR) Urine Opiates Screen Ur Oxycodone Screen Urine Methadone Screen Ur Barbiturates Screen U Tricyclic Antidepress Ur Phencyclidine Scrn Ur Amphetamines Screen U Methamphetamines Scrn Ur MDMA Scrn (Ecstasy) U Benzodiazepines Scrn Urine Cocaine Screen U Marijuana (THC) Screen Ketones Blood Type Antibody Screen 03/16/18 03/16/18 03/16/18 04:55 04:55 09:00 WBC 10.9 RBC 4.02 L Hgb 12.1 L Hct 34.5 L MCV 85.9 MCH 30.1 MCHC 35.0 RDW 13.5 Plt Count 250 Neut % (Auto) 74.9 Lymph % (Auto) 20.3 L [place] % (Auto) 4.5 Eos % (Auto) 0.1 L Baso % (Auto) 0.2 Neut # (Auto) 8100 H VBG pH Sodium 139 Potassium 4.0 Chloride 111 H Carbon Dioxide 20 L BUN 10 Creatinine 0.60 L Estimated GFR > 60.0 BUN/Creatinine Ratio 16.7 Glucose 85 Lactate Calcium 8.5 Total Bilirubin AST ALT Alkaline Phosphatase Total Creatine Kinase Troponin I Total Protein Albumin Globulin Albumin/Globulin Ratio Urine Color Urine Appearance Urine pH Ur Specific [place] Urine Protein Urine Glucose (UA) Urine Ketones Urine Occult Blood Urine Nitrate Urine Bilirubin Urine Urobilinogen Ur Leukocyte Esterase Nasal Screen MRSA (PCR) Urine Opiates Screen Ur Oxycodone Screen Urine Methadone Screen Ur Barbiturates Screen U Tricyclic Antidepress Ur Phencyclidine Scrn Ur Amphetamines Screen U Methamphetamines Scrn Ur MDMA Scrn (Ecstasy) U Benzodiazepines Scrn Urine Cocaine Screen U Marijuana (THC) Screen Ketones 0.99 H Blood Type Antibody Screen Discharge Plan Discharge Plan Patient Disposition: Home, Self-Care Provider Discharge Instructions Diet: Diet as Tolerated Discharge Data Attending Provider: Chaparro Waite Admit Date/Time: 03/15/18 12:28 Quality VTE Deep Vein Thrombosis/Pulmonary Embolism Present on Admission: No
[2018-03-16] MEDS: INSULIN ASPART 100 UNIT/ML INSULN PEN SUBCUT ×2 (09:48→12:18)
[2018-03-16] MEDS: INSULIN GLARGINE 100 UNIT/ML 3ML PEN 20 UNIT SUBCUT (09:48)
[2018-03-16] MEDS: PANTOPRAZOLE 40 MG VIAL IV (09:51)
[2018-03-16 11:19] VITALS: BMI 21.7
--- NOTE | 2018-03-16 15:21 | CM.DPNOTE ---
DCP/Brief Assessment: Reviewed chart. Pt. is a 32yr old male admitted to .. with diabetes mellitus. No PCP listed. Primary payor is 1)Self-pay. Attempted to meet with patient this afternoon. Spoke with RN whom reports that patient meeting with admit counselors this afternoon to apply for Medicaid. DEPARTMENT ADMINISTRATOR re-attempted visit around 3:00pm and patient had already been discharged. [employer] provided with community resources for patient for outpatient medical follow up. RN reports patient completely I with all ADL's. Pt. resides on [address] and plans to return home today. Instructed RN to call [facility] for transport to [facility]. P: Home today. Community resources provided for social/medical needs as outpatient. MADELAINE Hoang
== END 2018-03-16 14:56 | disposition home or self-care (01) | DRG 420 ==
LOC: ED 12:25 → ICU 12:29
PROVIDERS: Admitting Provider Internal Medicine; Emergency Provider Emergency Medicine; Visit Provider Internal Medicine
DX: E10.10 Type 1 diabetes mellitus with ketoacidosis without coma (principal); F17.210 Nicotine dependence, cigarettes, uncomplicated; I25.10 Atherosclerotic heart disease of native coronary artery without angina pectoris; T38.3X6A Underdosing of insulin and oral hypoglycemic [antidiabetic] drugs, initial encounter; Z91.128 Patient's intentional underdosing of medication regimen for other reason; K29.01 Acute gastritis with bleeding
CPT/HCPCS: 36415; 36591; 71045; 80048; 80053; 80305; 81003; 82009; 82550; 82553; 82962; 83605; 83986; 84484; 85025; 86850; 86900; 86901; 87086; 87797; 93005; 96361; 96374; 96375; 99285; C9113; J2060; J2405; J2765; J3480